=== PATIENT | female | born 2000 | race Caucasian/White ===

== ENCOUNTER 2019-04-22 17:17 | Outpatient (CLI) | payer OTHER ==
[2019-04-22] MEDS ORDERED: PRENATAL TABLE1 EAC1 PO (18:47)
== END 2019-04-23 19:32 | disposition home or self-care (01) ==
LOC: OBS/DEL 17:17 → LDR 17:17 → OBS/DEL 17:20
DX: O60.03 Preterm labor without delivery, third trimester (principal); O23.43 Unspecified infection of urinary tract in pregnancy, third trimester; O35.8XX0 Maternal care for other (suspected) fetal abnormality and damage, not applicable or unspecified

== ENCOUNTER 2019-05-17 20:19 | Inpatient (IN) | payer OTHER ==
[~2019-05-17] VITALS: Ht 167.6 cm; Wt 68.9 kg
[~2019-05-17 20:19] MED LIST: PRENATAL TABLE1 EAC1 PO
[2019-05-18] MEDS ORDERED: PRENATAL TABLE1 EAC1 PO (18:43)
== END 2019-05-21 19:57 | DRG 806 ==
LOC: OBS/DEL 20:19 → LDR 20:21 → OBS/DEL 20:54 → LDR 05-18 13:29 → OB/GYN 05-18 13:29
PROVIDERS: ADMIT Obstetrics & Gynecology
PROC: 4A1HXCZ Monitoring of Products of Conception, Cardiac Rate, External Approach (ICD-10-PCS; 2019-05-18)
PROC: B54DZZZ Ultrasonography of Bilateral Lower Extremity Veins (ICD-10-PCS; 2019-05-18)
PROC: 10E0XZZ Delivery of Products of Conception, External Approach (ICD-10-PCS; principal; 2019-05-19)
PROC: 0UQMXZZ Repair Vulva, External Approach (ICD-10-PCS; 2019-05-19)
PROC: 0W8NXZZ Division of Female Perineum, External Approach (ICD-10-PCS; 2019-05-19)
PROC: 3E033VJ Introduction of Other Hormone into Peripheral Vein, Percutaneous Approach (ICD-10-PCS; 2019-05-19)
DX: O71.82 Other specified trauma to perineum and vulva (principal); O14.03 Mild to moderate pre-eclampsia, third trimester; Z37.0 Single live birth; O12.03 Gestational edema, third trimester; Z3A.37 37 weeks gestation of pregnancy

== ENCOUNTER 2023-12-26 23:00 | Outpatient (CLI) | payer OTHER ==
[~2023-12-26] VITALS: Ht 172.7 cm; Wt 81.6 kg
[2023-12-27] VITALS (7 sets, daily range): BP systolic 119–138; BP diastolic 66–88; O2SAT 99–100
[2023-12-27] MEDS ORDERED: FAMOTIDINE/PF 20 MG/2 ML VIAL IV ONE (02:00)
[2023-12-27] MEDS ORDERED: ACETAMINOPHEN 500 MG GEL..CAP PO PRN (02:00)
[2023-12-27] MEDS ORDERED: RINGERS SOLUTION,LACTATED 1,000 ML IV SCH (02:00)
[2023-12-27] MEDS ORDERED: PRENATABS RX T1 EACH PO (02:20)
[2023-12-27 02:30] LABS: PH,URINE 6.5 (5.0-8.0); URINE APPEARANCE Clear; URINE BILIRRUBIN Negative (NEGATIVE); URINE BLOOD NHT; URINE COLOR Yellow; URINE GLUCOSE Negative (NEGATIVE); URINE KETONE Negative (NEGATIVE); URINE LEUKOCYTE Trace; URINE NITRATE Negative; URINE PROTEIN Trace (NEGATIVE)
[2023-12-27 02:32] LABS: HEMATOCRIT 30.2 % (36.0-45.00); HEMOGLOBIN 9.8 g/dL (12.0-15.00); MEAN CELL VOLUME 76.5 fL (80.00-100.00); MEAN CORPUSCULAR HEMOGLOBIN 24.9 pg (27.00-32.0); MEAN CORPUSCULAR HGB CONC 32.5 g/dl (32.0-36.0); PLATELET COUNT 245 K/uL (150-450); RED BLOOD COUNT 3.94 M/uL (4.00-6.00); RED CELL DISTRIBUTION WIDTH 15.5 % (11.5-14.5)
[2023-12-27 02:34] LABS: URINE BACTERIA 1828.1 uL (0.0-1933); URINE EPITHELIAL CELLS 38.3 uL (0.0-38.8); URINE RBC 38.1 uL (0.0-20.8); URINE WBC 36.9 uL (0.0-23.2)
[2023-12-27 03:08] LABS: INR 1.02; PARTIAL THROMBOPLASTIN TIME 26.5 SECONDS (22.0-34.0); PROTHROMBIN TIME 11.1 SECONDS (9.0-11.5)
[2023-12-27 03:12] LABS: ALBUMIN 2.5 gm/dL (3.4-5.0); BILIRUBIN TOTAL 0.31 mg/dL (0.3-1.2); CREATININE SERUM 0.7 mg/dL (0.55-1.02); GFR 102.8; POTASSIUM 4.07 mEq/L (3.5-5.1); TOTAL PROTEIN 6.5 gm/dL (6.4-8.2)
[2023-12-27 03:28] LABS: URINE CAST 0.15 uL (0.0-1.40)
[2023-12-27 03:30] LABS: URINE CRYSTALS MANY /HPF
[2023-12-27] MEDS ORDERED: KETOROLAC TROMETHAMINE 60 MG VIAL IM STA (11:24)
[2023-12-27] MEDS ORDERED: FERROUS SULFAT325 MG PO (15:13)
== END 2023-12-27 16:45 | disposition home or self-care (01) ==
LOC: OBS/DEL 23:00 → LDR 12-27 01:49 → OBS/DEL 12-27 01:55
PROVIDERS: ATTEND Specialist
DX: O99.013 Anemia complicating pregnancy, third trimester (principal); Z3A.32 32 weeks gestation of pregnancy; R51.9 Headache, unspecified; O36.8199 Decreased fetal movements, unspecified trimester, other fetus; O60.00 Preterm labor without delivery, unspecified trimester